=== PATIENT | female | born 1990 | race Caucasian/White ===

== ENCOUNTER 2024-02-02 11:04 | Emergency (ER) | payer OTHER ==
[2024-02-02] MEDS ORDERED: Loratadine 10 MG TAB ONE (11:37)
[2024-02-02] MEDS ORDERED: methylPREDNISolone Sod Succ/PF 125 MG/2 ML VIAL ONE (11:51)
[2024-02-02] MEDS ORDERED: traMADol HCl 50 MG TAB ONE (12:16)
== END 2024-02-02 12:24 | disposition home or self-care (01) ==
LOC: MADERS 11:04
DX: T63.461A Toxic effect of venom of wasps, accidental (unintentional), initial encounter (principal); L50.9 Urticaria, unspecified; F17.210 Nicotine dependence, cigarettes, uncomplicated
CPT/HCPCS: 96372; 99282; J2919